=== PATIENT | male | born 1990 | race Caucasian/White ===

== ENCOUNTER 2017-09-16 19:43 | Emergency (ER) | payer OTHER ==
[~2017-09-16] VITALS: Ht 167.6 cm; Wt 74.8 kg
[~2017-09-16 19:43] MED LIST: ABILIFY20 MG PO; ACETAMINOPHEN-1 EAC1 PO; CELEXA20 MG PO; CYCLOBENZAPRINE5 MG PO; FLEXERIL PO; HYDROCODONE-AP1 EAC6 PO; HYDROCODONE-APA1 TA1 PO; IBUPROFEN 800800 M1 PO; NAPROSYN500 MG PO; NOHOMEMEDICATIONS; NORCO 5-325 TA1 EACH PO; PERCOCET 5-3251 EACH PO; ROBAXIN 750 MG750 M1 PO; STRATTERA80 MG; ZOLOFT100 MG
[2017-09-16] MEDS ORDERED: HYDROCODONE-AP1 EAC6 PO (21:00)
[2017-09-16] MEDS ORDERED: NAPROSYN500 MG PO (21:00)
[2017-09-16 21:25] VITALS: BP 108/67
== END 2017-09-16 21:28 | disposition home or self-care (01) ==
LOC: M.ERS 19:43
DX: M54.5 Low back pain (principal); J45.909 Unspecified asthma, uncomplicated; F10.20 Alcohol dependence, uncomplicated; F41.9 Anxiety disorder, unspecified; F17.210 Nicotine dependence, cigarettes, uncomplicated; F32.9 Major depressive disorder, single episode, unspecified; Z88.2 Allergy status to sulfonamides; Z88.5 Allergy status to narcotic agent

== ENCOUNTER 2017-10-06 11:17 | Emergency (ER) | payer OTHER ==
[~2017-10-06] VITALS: Ht 167.6 cm; Wt 74.8 kg
[2017-10-06] MEDS ORDERED: HYDROCODONE-AP1 EAC6 PO (11:49)
[2017-10-06 12:04] VITALS: BP 109/68
== END 2017-10-06 12:05 | disposition home or self-care (01) ==
LOC: M.ERS 11:17
DX: M54.5 Low back pain (principal); J45.909 Unspecified asthma, uncomplicated; F32.9 Major depressive disorder, single episode, unspecified; F41.9 Anxiety disorder, unspecified; F17.210 Nicotine dependence, cigarettes, uncomplicated; Z88.6 Allergy status to analgesic agent; Z88.2 Allergy status to sulfonamides